=== PATIENT | female | born 1970 | race Caucasian/White ===

== ENCOUNTER 2019-07-06 16:35 | Emergency (ER) | payer SELFPAY ==
[~2019-07-06] VITALS: Ht 165.1 cm; Wt 63.5 kg
[2019-07-06] MEDS ORDERED: NS IV 1000 ML 1,000 ML IV STA (16:52)
--- NOTE | 2019-07-06 16:59 | ED General ---
General Chief Complaint: Respiratory Problems Stated Complaint: SOA,FLU A Source of Information: Patient History of Present Illness Date Seen by Provider: Jul 06, 2019 Time Seen by Provider: 16:37 Initial Comments 49-year-old female presenting with complaints of shortness of breath and swelling in her legs. This is been progressing since Thursday. She did have influenza A approximately 2 weeks ago. She felt like she was improving from that but then has had this increasing shortness of breath with cough and swelling since Thursday. She has not been having any fevers or chills. She has increased shortness of breath with exertion. She denies any pain. She has had no nausea, vomiting, abdominal pain, diarrhea, painful urination. She does have some dizziness with exertion and changing position. She has sensation of her heart racing especially with exertion. She occasionally coughs up some phlegm, more so in the mornings. Allergies and Home Medications Allergies Coded Allergies: No Known Drug Allergies (Unverified , 07/06/19) Home Medications Azithromycin 500 Mg Tablet, 500 MG PO DAILY Prescribed by: TANA FU on 07/06/19 190 Patient Home Medication List Home Medication List Reviewed: Yes Review of Systems Review of Systems Constitutional: No chills, No diaphoresis; dizziness (with exertion and changing positions); No fever; malaise EENTM: nose congestion, throat pain; No epistaxis Respiratory: cough, dyspnea on exertion, phlegm, short of breath (especially with exertion); No stridor, No wheezing Cardiovascular: No chest pain Gastrointestinal: No abdominal pain, No nausea, No vomiting Genitourinary: No dysuria, No pain; other (heavier menses lately) : No LMP: Jun 16, 2019 Musculoskeletal: no symptoms reported Skin: No rash Psychiatric/Neurological: Anxiety; Denies Headache Hematologic/Lymphatic: Anemia (Hgb 9 with labs for health fair at work on Monday 07/03) Past Nrhvngi-Wzglgg-Mrjgsq Hx Past Med/Social Hx: Reviewed Nursing Past Med/Soc Hx Patient Social History Alcohol Use: Denies Use Recreational Drug Use: No Smoking Status: Never a Smoker Recent Foreign Travel: No Contact w/Someone Who Travel: No Past Medical History Surgeries: Yes Appendectomy, Oophorectomy (1 ovary removed due to a cyst which was benign) Respiratory: No Cardiac: No Neurological: No Reproductive Disorders: Yes Female Reproductive Disorders: Ovarian Cyst (1 ovary removed due to a cyst) Genitourinary: No Musculoskeletal: No Endocrine: Yes Hypothyroidsim HEENT: No Cancer: No Psychosocial: No Integumentary: No Physical Exam Vital Signs Vital Signs - First Documented 07/06/19 16:35 Temp 37.4 Pulse 122 Resp 16 B/P (MAP) 151/87 (108) Pulse Ox 100 O2 Delivery Room Air Capillary Refill : Height, Weight, BMI Height: '" Weight: lbs. oz. kg; BMI Method: General Appearance: WD/WN, Anxious, Mild Distress HEENT: PERRL/EOMI, Pharyngeal Erythema Neck: Non Tender, Supple Respiratory: Chest Non Tender, Lungs Clear, Normal Breath Sounds Cardiovascular: No Murmur, Normal Peripheral Pulses, Tachycardia Gastrointestinal: Normal Bowel Sounds, No Pulsatile Mass, Non Tender, Soft Extremity: Normal Capillary Refill, Normal Range of Motion, Non Tender, Pedal Edema (1+ BLE pedal edema) Neurologic/Psychiatric: Alert, Oriented x3, No Motor/Sensory Deficits, ruby engineer II- XII Norm as Tested, Other (anxious) Skin: Normal Color, Warm/Dry Focused Exam Lactate Level 07/06/19 16:50: Lactic Acid Level 0.77 Lactic Acid Level Progress/Results/Core Measures Suspected Sepsis SIRS Temperature: Pulse: Respiratory Rate: Laboratory Tests 07/06/19 16:50: White Blood Count 8.1 Blood Pressure / Mean: 07/06/19 16:50: Lactic Acid Level 0.77 Laboratory Tests 07/06/19 16:50: Creatinine 0.69, Platelet Count 117L, Total Bilirubin 0.7 Results/Orders Lab Results Laboratory Tests Test 07/06/19 16:50 07/06/19 16:59 07/06/19 17:05 Range/Units White Blood Count 8.1 4.3-11.0 10^3/uL Red Blood Count 2.01 L 4.35-5.85 10^6/uL Hemoglobin 8.6 L 11.5-16.0 G/DL Hematocrit 25 L 35-52 % Mean Corpuscular Volume 123 H 80-99 FL Mean Corpuscular Hemoglobin 43 H 25-34 PG Mean Corpuscular Hemoglobin Concent 35 32-36 G/DL Red Cell Distribution Width 11.7 10.0-14.5 % Platelet Count 117 L 130-400 10^3/uL Mean Platelet Volume 12.2 H 7.4-10.4 FL Neutrophils (%) (Auto) 68 42-75 % Lymphocytes (%) (Auto) 27 12-44 % Monocytes (%) (Auto) 3 0-12 % Eosinophils (%) (Auto) 2 0-10 % Basophils (%) (Auto) 6 0-10 % Neutrophils # (Auto) 5.3 1.8-7.8 X 10^3 Lymphocytes # (Auto) 2.2 1.0-4.0 X 10^3 Monocytes # (Auto) 0.2 0.0-1.0 X 10^3 Eosinophils # (Auto) 0.1 0.0-0.3 10^3/uL Basophils # (Auto) 0.0 0.0-0.1 10^3/uL D-Dimer 0.69 H 0.00-0.49 UG/ML Sodium Level 141 135-145 MMOL/L Potassium Level 3.7 3.6-5.0 MMOL/L Chloride Level 106 98-107 MMOL/L Carbon Dioxide Level 24 21-32 MMOL/L Anion Gap 11 5-14 MMOL/L Blood Urea Nitrogen 12 7-18 MG/DL Creatinine 0.69 0.60-1.30 MG/DL Estimat Glomerular Filtration Rate > 60 BUN/Creatinine Ratio 17 Glucose Level 101 70-105 MG/DL Lactic Acid Level 0.77 0.50-2.00 MMOL/L Calcium Level 8.6 8.5-10.1 MG/DL Corrected Calcium 8.6 8.5-10.1 MG/DL Magnesium Level 2.0 1.6-2.4 MG/DL Total Bilirubin 0.7 0.1-1.0 MG/DL Aspartate Amino Transf (AST/SGOT) 47 H 5-34 U/L Alanine Aminotransferase (ALT/SGPT) 53 0-55 U/L Alkaline Phosphatase 92 40-136 U/L Troponin I < 0.30 <0.30 NG/ML Pro-B-Type Natriuretic Peptide 214.5 H <75.0 PG/ML Total Protein 6.7 6.4-8.2 GM/DL Albumin 4.0 3.2-4.5 GM/DL Blood Gas Puncture Site Lt Radial Blood Gas Patient Temperature 37.4 Arterial Blood pH 7.41 7.37-7.43 Arterial Blood Partial Pressure CO2 41 35-45 MMHG Arterial Blood Partial Pressure O2 26 *L 79-93 MMHG Arterial Blood HCO3 26 23-27 MMOL/L Arterial Blood Total CO2 27.3 21.0-31.0 MMOL/L Arterial Blood Oxygen Saturation 49 L 94-100 % Arterial Blood Base Excess 1.2 -2.5-2.5 MMOL/L Tj Test YES-POS Blood Gas Ventilator Setting NO Blood Gas Inspired Oxygen ROOM AIR Urine Color PALE YELLOW Urine Clarity CLEAR Urine pH 6.5 5-9 Urine Specific [place] <=1.005 1.016-1.022 Urine Protein NEGATIVE NEGATIVE Urine Glucose (UA) NEGATIVE NEGATIVE Urine Ketones NEGATIVE NEGATIVE Urine Nitrite NEGATIVE NEGATIVE Urine Bilirubin NEGATIVE NEGATIVE Urine Urobilinogen 0.2 < = 1.0 MG/DL Urine Leukocyte Esterase NEGATIVE NEGATIVE Urine RBC (Auto) NEGATIVE NEGATIVE Urine RBC NONE /HPF Urine WBC 2-5 /HPF Urine Squamous Epithelial Cells 2-5 /HPF Urine Crystals NONE /LPF Urine Bacteria FEW H /HPF Urine Casts NONE /LPF Urine Mucus NEGATIVE /LPF Urine Culture Indicated YES My Orders Orders - TANA FU MD Cbc With Automated Diff (07/06/19 16:37) Comprehensive Metabolic Panel (07/06/19 16:37) Blood Culture (07/06/19 16:37) Magnesium (07/06/19 16:37) Chest Pa/Lat (2 View) (07/06/19 16:37) Ekg Tracing (07/06/19 16:37) O2 (07/06/19 16:37) Ed Iv/Invasive Line Start (07/06/19 16:37) Sputum Culture (07/06/19 16:37) Monitor-Rhythm Ecg Trace Only (07/06/19 16:37) Lactic Acid Analyzer (07/06/19 16:37) Troponin I Fs (07/06/19 16:37) Probnp Fs (07/06/19 16:37) Pulse Oximetry Order (07/06/19 16:52) Ns Iv 1000 Ml (Sodium Chloride 0.9%) (07/06/19 16:52) Fibrin Degradation Products (07/06/19 17:05) Arterial Blood Gas (07/06/19 17:06) Ua Culture If Indicated (07/06/19 17:28) Ceftriaxone For Iv Use (Rocephin For I (07/06/19 17:33) Azithromycin Tablet (Zithromax Tablet) (07/06/19 17:33) Urine Culture (07/06/19 17:05) Ct Angio Chest W (07/06/19 18:09) Iohexol Injection (Omnipaque 350 Mg/Ml 1 (07/06/19 18:30) Received Contrast (Hold Metformin- Contr (07/06/19 18:30) Sodium Chloride Flush (Catheter Flush Sy (07/06/19 18:30) Ns (Ivpb) (Sodium Chloride 0.9% Ivpb Bag (07/06/19 18:30) Medications Given in ED Current Medications Medications Dose Ordered Sig/Ann Route Start Time Stop Time Status Last Admin Dose Admin Iohexol 100 ml ONCE ONCE IV 07/06/19 18:30 07/06/19 18:31 DC 07/06/19 18:37 100 ML Sodium Chloride 10 ml NEEDED PRN IV 07/06/19 18:30 07/06/19 19:25 DC 07/06/19 18:37 10 ML Sodium Chloride 100 ml ONCE ONCE IV 07/06/19 18:30 07/06/19 18:31 DC 07/06/19 18:37 100 ML Vital Signs/I&O 07/06/19 07/06/19 16:35 19:24 Temp 37.4 Pulse 122 98 Resp 16 18 B/P (MAP) 151/87 (108) 110/57 Pulse Ox 100 98 O2 Delivery Room Air Room Air 07/07/19 00:00 Intake Total 1010 ml Balance 1010 ml Capillary Refill : Progress Note #1: Progress Note Obtain basic labs and electrocardiogram with chest x-ray. Dr. Agrawal did call over to discuss the patient prior to her arrival in the emergency department. She requested chest x-ray and labs to evaluate for possible pneumonia. She was also concerned for cardiomyopathy or a cardiac pathology that might be contrib uting to her symptoms with her recent influenza infection. She was given a steroid shot in the clinic. Progress Note #2: Time: 17:31 Progress Note CXR shows Left base pneumonia and pleural effusion. Oxygen saturation stayed 97- 100% with walking here in the department. Will start antibiotics based off of her CXR findings and symptoms. Progress Note #3: Time: 17:49 Progress Note updated pt on CBC and CXR results. Her CBC was showing continued anemia with Hgb 8.6 and continued thrombocytopenia with Plt 117. She does have an elevated MCV of 123 so she might have low Vitamin B12 or Folate levels. Awaiting additional chemistry and D dimer tests still. pt reports she is feeling better between steroid shot from clinic and fluids here in ED. her O2 sat is remaining at 98-100% on room air. Progress Note #4: Time: 18:09 Progress Note Chemistry panel shows no acute significant abnormality. Negative Troponin. ProBNP still pending. DDimer elevated at 0.69 so will add on CTA chest to evaluate for PE as cause of infiltrate and effusion. Progress Note #5: Time: 18:49 Progress Note CTA chest negative for PE but shows infiltrate and effusion. will proceed with zithromax for pneumonia and follow up with Dr. Agrawal as needed. d/w Dr. Agrawal and pt had DepoMedrol so no need to continue oral steroids. 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 ECG Initial ECG Impression Date: Jul 06, 2019 Initial ECG Impression Time: 16:40 Initial ECG Rate: 111 Initial ECG Rhythm: S.Tach Initial ECG Comparisson: No Previous ECG Available Comment Sinus tachycardia with a heart rate in the 111 bpm. [place] interval 137 ms. QT interval 339 ms QTc interval 461 ms. There is no acute ST elevation. There is no prior tracing available for comparison. Diagnostic Imaging Diagonstic Imaging: Xray Plain Films/CT/US/NM/MRI: chest Comments NAME: RAF CORTEZ [facility] REC#: [id number] PT STATUS: REG ER : 1970 PHYSICIAN: TANA FU MD ADMIT DATE: 07/06/19/ER FS Draft Date of Exam:07/06/19 CHEST PA/LAT (2 VIEW) INDICATION: Cough and hypoxemia. PA and lateral views of the chest are obtained. There is no previous study for comparison. FINDINGS: There is mild air trapping, bilaterally. There is mild patchy density in the left lung base with blunting of the left costophrenic sulcus. Heart size and pulmonary vascularity are within normal limits. Lungs are otherwise clear. IMPRESSION: Mild left basilar infiltrate may represent pneumonitis or atypical pneumonia. There is evidence of mild left pleural fluid. Dictated on workstation # [id number] Dict: 07/06/19 1725 Trans: 07/06/19 1728 TS [id number] Interpreted by: PETROS JACOBO MD Electronically signed by: Greciagonsivana Imaging: CT Plain Films/CT/US/NM/MRI: chest Comments NAME: RAF CORTEZ REC#: [id number] PT STATUS: REG ER : 1970 PHYSICIAN: TANA FU MD ADMIT DATE: 07/06/19/ER FS Draft Date of Exam:07/06/19 CT ANGIO CHEST W PROCEDURE: CT angiography of the chest with contrast. TECHNIQUE: Multiple contiguous axial images were obtained through the chest after uneventful bolus administration of intravenous contrast. 3D reconstructed CTA MIP acquisitions were also performed. Auto Exposure Controls were utilized during the CT exam to meet ALARA standards for radiation dose reduction. INDICATION: Cough and elevated d-dimer. FINDINGS: There is good opacification of pulmonary arteries. No intraluminal filling defect is identified. There is no evidence of thoracic aortic abnormality. There is patchy infiltrate involving primarily the lower lobe of the left lung with an approximately 7.6 x 1.4 cm nodular focus of presumed infiltrate along the posterior margin of the left hilum. There is also small amount of left pleural fluid. No significant right pleural fluid or pericardial effusion is identified. No definite pathologic adenopathy is identified. Upper abdominal sections reveal no additional lesion apart from a probable posterior gastric diverticulum at the level of the fundus.. IMPRESSION: No CTA evidence of pulmonary embolism. Patchy areas of infiltrate in the left lung are likely due to pneumonitis or atypical pneumonia. There is associated small amount of left pleural fluid. Follow-up study could be performed to document resolution. Dictated on workstation # [id number] Dict: 07/06/19 1848 Trans: 07/06/19 1858 SA [id number] Interpreted by: PETROS JACOBO MD Electronically signed by: Departure Impression Primary Impression: Left lower lobe pulmonary infiltrate Additional Impressions: Pleural effusion on left Anemia Qualified Codes: D64.9 - Anemia, unspecified Thrombocytopenia Disposition: 01 HOME, SELF-CARE Condition: Stable Departure-Patient Inst. Decision time for Depature: 19:01 Referrals: LOVELY AGRAWAL MD (PCP/Family) Primary Care Physician Patient Instructions: Pneumonia, Adult (DC), Pleural Effusion (DC) Add. Discharge Instructions: Take the full course of antibiotics. Take a multivitamin with iron to help your body replace your low blood count and anemia. Follow up with Dr. Agrawal for further testing to see if you have low vitamin levels that might be contributing to the anemia. Return or check with clinic for worsening breathing or if not improving over the next several days. Take mucinex to help loosen your cough and congestion. Use a humidifier at the bedside to help with your congestion and cough while you are sleeping. All discharge instructions reviewed with patient and/or family. Voiced understanding. Scripts Azithromycin (Azithromycin) 500 Mg Tablet 500 MG PO DAILY for pneumonia for 4 Days, #4 TAB 0 Refills Prov: TANA FU MD 07/06/19 TANA FU MD Jul 06, 2019 16:59
--- NOTE | 2019-07-06 17:27 | NUR ---
Pt walked to radiology with portable O2 monitor. Pt's O2 sat ranged between 97%-100% while ambulating.
--- NOTE | 2019-07-06 17:28 | Diagnostic Imaging Report ---
INDICATION: Cough and hypoxemia. PA and lateral views of the chest are obtained. There is no previous study for comparison. FINDINGS: There is mild air trapping, bilaterally. There is mild patchy density in the left lung base with blunting of the left costophrenic sulcus. Heart size and pulmonary vascularity are within normal limits. Lungs are otherwise clear. IMPRESSION: Mild left basilar infiltrate may represent pneumonitis or atypical pneumonia. There is evidence of mild left pleural fluid. Dictated by: Dictated on workstation # [id number]
[2019-07-06] MEDS ORDERED: AZITHROMYCIN 250 MG TAB (ZITHROMAX) PO STA (17:33)
[2019-07-06] MEDS ORDERED: cefTRIAXone FOR IV USE 1,000 MG in WATER (STERILE) FOR INJECTION 10 ML IV STA (17:33)
[2019-07-06 17:34] LABS: EOSINOPHILS % (AUTO) 2 % (0-10); HEMATOCRIT 25 % (35-52); HEMOGLOBIN 8.6 G/DL (11.5-16.0); LYMPHOCYTES % (AUTO) 27 % (12-44); MEAN CORPUSCULAR HEMOGLOBIN 43 PG (25-34); MEAN CORPUSCULAR HGB CONC 35 G/DL (32-36); MEAN CORPUSCULAR VOLUME 123 FL (80-99); MEAN PLATELET VOLUME 12.2 FL (7.4-10.4); MONOCYTES % (AUTO) 3 % (0-12); PLATELET COUNT 117 10^3/uL (130-400); RED CELL DISTRIBUTION WIDTH 11.7 % (10.0-14.5); WHITE BLOOD COUNT 8.1 10^3/uL (4.3-11.0)
[2019-07-06 17:35] LABS: BASOPHILS % (AUTO) 6 % (0-10); NEUTROPHILS % (AUTO) 68 % (42-75)
[2019-07-06 17:37] LABS: EOSINOPHILS # (AUTO) 0.1 10^3/uL (0.0-0.3); LYMPHOCYTES # (AUTO) 2.2 X 10^3 (1.0-4.0); MONOCYTES # (AUTO) 0.2 X 10^3 (0.0-1.0); NEUTROPHILS # (AUTO) 5.3 X 10^3 (1.8-7.8)
[2019-07-06 17:48] LABS: ALANINE AMINOTRANSFERASE 53 U/L (0-55); ALKALINE PHOSPHATASE 92 U/L (40-136); BILIRUBIN,TOTAL 0.7 MG/DL (0.1-1.0); BUN/CREATININE RATIO 17; CALCIUM 8.6 MG/DL (8.5-10.1); CARBON DIOXIDE 24 MMOL/L (21-32); CHLORIDE 106 MMOL/L (98-107); CREATININE SERUM 0.69 MG/DL (0.60-1.30); GFR ESTIMATED > 60; GLUCOSE 101 MG/DL (70-105); POTASSIUM 3.7 MMOL/L (3.6-5.0); SODIUM 141 MMOL/L (135-145)
[2019-07-06 17:49] LABS: TOTAL PROTEIN 6.7 GM/DL (6.4-8.2)
[2019-07-06 17:50] LABS: ABG BASE EXCESS 1.2 MMOL/L (-2.5-2.5); ABG PCO2 41 MMHG (35-45); ABG PH 7.41 (7.37-7.43); ABG TCO2 27.3 MMOL/L (21.0-31.0)
[2019-07-06 17:51] LABS: ALLENS TEST YES-POS; PATIENT TEMP 37.4; VENTILATOR NO
[2019-07-06 17:52] LABS: ABG OXYGEN SATURATION 49 % (94-100); ABG PO2 26 MMHG (79-93)
[2019-07-06 17:53] LABS: INSPIRED O2 ROOM AIR
[2019-07-06 18:02] LABS: BACTERIA,URINE FEW /HPF; BILIRUBIN,URINE NEGATIVE (NEGATIVE); CLARITY,URINE CLEAR; COLOR,URINE PALE YELLOW; GLUCOSE, URINE (UA) NEGATIVE (NEGATIVE); KETONES,URINE NEGATIVE (NEGATIVE); LEUKOCYTE ESTERASE ,URINE NEGATIVE (NEGATIVE); NITRITE,URINE NEGATIVE (NEGATIVE); PH,URINE 6.5 (5-9); PROTEIN,URINE NEGATIVE (NEGATIVE)
[2019-07-06] MEDS ORDERED: IOHEXOL 350 MG/ML 100 ML (OMNIPAQUE 350) VIAL IV ONE (18:30)
[2019-07-06] MEDS ORDERED: NS 100 ML (IVPB) BAG IV ONE (18:30)
[2019-07-06] MEDS ORDERED: HOLD METFORMIN - RECEIVED CONTRAST 20 ML VIAL IV SCH (18:30)
[2019-07-06] MEDS ORDERED: CATHETER FLUSH 10 ML SYR IV PRN (18:30)
--- NOTE | 2019-07-06 18:58 | Diagnostic Imaging Report ---
PROCEDURE: CT angiography of the chest with contrast. TECHNIQUE: Multiple contiguous axial images were obtained through the chest after uneventful bolus administration of intravenous contrast. 3D reconstructed CTA MIP acquisitions were also performed. Auto Exposure Controls were utilized during the CT exam to meet ALARA standards for radiation dose reduction. INDICATION: Cough and elevated d-dimer. FINDINGS: There is good opacification of pulmonary arteries. No intraluminal filling defect is identified. There is no evidence of thoracic aortic abnormality. There is patchy infiltrate involving primarily the lower lobe of the left lung with an approximately 7.6 x 1.4 cm nodular focus of presumed infiltrate along the posterior margin of the left hilum. There is also small amount of left pleural fluid. No significant right pleural fluid or pericardial effusion is identified. No definite pathologic adenopathy is identified. Upper abdominal sections reveal no additional lesion apart from a probable posterior gastric diverticulum at the level of the fundus.. IMPRESSION: No CTA evidence of pulmonary embolism. Patchy areas of infiltrate in the left lung are likely due to pneumonitis or atypical pneumonia. There is associated small amount of left pleural fluid. Follow-up study could be performed to document resolution. Dictated by: Dictated on workstation # [id number]
[2019-07-06] MEDS ORDERED: AZIT500T9 PO (19:05)
[2019-07-06 19:24] VITALS: BP 110/57
--- OUTSIDE RECORDS SUMMARY | 2019-07-11 10:31 | XMS REPORT | Continuity of Care Document ---
Author Organization Unknown Address Unknown Phone Unavailable Allergies Active Description Code Type Severity Reaction Onset Reported/Identified Relationship to Patient Clinical Status Yes No Known Drug Allergies [id number] Drug Allergy Unknown N/A 07/06/2019 Medications There is no data. Problems There is no data. Procedures There is no data. Results Test Result Range LIPID PANEL - 08/10/18 14:17 CHOLESTEROL, TOTAL 165 mg/dL <200 HDL CHOLESTEROL 67 mg/dL >50 TRIGLYCERIDES 92 mg/dL <150 LDL-CHOLESTEROL 80 mg/dL (calc) NRG CHOL/HDLC RATIO 2.5 (calc) <5.0 NON HDL CHOLESTEROL 98 mg/dL (calc) <130 CMP - 08/10/18 14:17 GLUCOSE 79 mg/dL 65-99 UREA NITROGEN (BUN) 14 mg/dL 7-25 CREATININE 0.61 mg/dL 0.50-1.10 eGFR NON-AFR. POLISH 109 mL/min/1.73m2 > OR = 60 eGFR 126 mL/min/1.73m2 > OR = 60 BUN/CREATININE RATIO NOT APPLICABLE (calc) 6-22 SODIUM 139 mmol/L 135-146 POTASSIUM 4.3 mmol/L 3.5-5.3 CHLORIDE 105 mmol/L 98-110 CARBON DIOXIDE 22 mmol/L 20-32 CALCIUM 8.8 mg/dL 8.6-10.2 PROTEIN, TOTAL 6.7 g/dL 6.1-8.1 ALBUMIN 4.8 g/dL 3.6-5.1 GLOBULIN 1.9 g/dL (calc) 1.9-3.7 ALBUMIN/GLOBULIN RATIO 2.5 (calc) 1.0-2. 5 BILIRUBIN, TOTAL 1.0 mg/dL 0.2-1.2 ALKALINE PHOSPHATASE 43 U/L 33-115 AST 19 U/L 10-35 ALT 12 U/L 6-29 SUREPATH PAP RFX HPV mRNA E6/E7 - 16:27 CLINICAL INFORMATION: NRG LMP: NRG PREV. PAP: NRG PREV. BX: NRG SOURCE: Cervix NR STATEMENT OF ADEQUACY: NRG INTERPRETATION/RESULT: NRG INSERTER: MANFREDG GENERAL CATEGORIZATION: NRG COMMENT: NRG PATHOLOGIST: NRG COMMENT NR LIPID PANEL - 02/18/19 07:42 CHOLESTEROL, TOTAL 150 mg/dL <200 HDL CHOLESTEROL 60 mg/dL >50 TRIGLYCERIDES 82 mg/dL <150 LDL-CHOLESTEROL 74 mg/dL (calc) NRG CHOL/HDLC RATIO 2.5 (calc) <5.0 NON HDL CHOLESTEROL 90 mg/dL (calc) <130 TSH - 02/18/19 07:42 TSH 0.35 mIU/L NRG Complete blood count (CBC) with automate d white blood cell (WBC) differential - 07/06/19 16:50 Blood leukocytes automated count (number/volume) 8.1 10*3/uL 4.3-11.0 Blood erythrocytes automated count (number/volume) 2.01 10*6/uL 4.35-5.85 Venous blood hemoglobin measurement (mass/volume) 8.6 g/dL 11.5-16.0 Blood hematocrit (volume fraction) 25 % 35-52 Automated erythrocyte mean corpuscular volume 123 [foz_us] 80-99 Automated erythrocyte mean corpuscular h emoglobin (mass per erythrocyte) 43 pg 25-34 Automated erythrocyte mean corpuscular h emoglobin concentration measurement (mass/volume) 35 g/dL 32-36 Automated erythrocyte distribution width ratio 11. 7 % 10.0- 14.5 Automated blood platelet count (count/volume) 117 10*3/uL 130-400 Automated blood platelet mean volume measurement 12.2 [foz_us] 7.4-10.4 Automated blood neutrophils/100 leukocytes 68 % 42-75 Automated blood lymphocytes/100 leukocytes 27 % 12-44 Blood monocytes/100 leukocytes 3 % 0-12 Automated blood eosinophils/100 leukocytes 2 % 0-10 Automated blood basophils/100 leukocytes 6 % 0-10 Blood neutrophils automated count (number/volume) 5.3 10*3 1.8-7.8 Blood lymphocytes automated count (number/volume) 2.2 10*3 1.0-4.0 Blood monocytes automated count (number/volume) 0. 2 10*3 0.0-1.0 Automated eosinophil count 0.1 10*3/uL 0 .0-0.3 Automated blood basophil count (count/volume) 0.0 10*3/uL 0.0-0.1 Blood lactic acid measurement (moles/vol ume) - 07/06/19 16:50 Blood lactic acid measurement (moles/volume) 0.77 mmol/L 0.50-2.00 Comprehensive metabolic panel - 07/06/19 16:50 Serum or plasma sodium measurement (moles/volume) 141 mmol/L 135-145 Serum or plasma potassium measurement (moles/volume) 3.7 mmol/L 3.6-5.0 Serum or plasma chloride measurement (moles/volume) 106 mmol/L 98-107 Carbon dioxide 24 mmol/L 21-32 Serum or plasma anion gap determination (moles/volume) 11 mmol/L 5-14 Serum or plasma urea nitrogen measurement (mass/volume ) 12 mg/dL 7-18 Serum or plasma creatinine measurement (mass/volume) 0.69 mg/dL 0.60-1.30 Serum or plasma urea nitrogen/creatinine mass ratio 17 NRG Serum or plasma creatinine measurement w ith calculation of estimated glomerular filtration rate > NRG Serum or plasma glucose measurement (mass/volume) 101 mg/dL 70-105 Serum or plasma calcium measurement (mass/volume) 8.6 mg/dL 8.5-10.1 Serum or plasma total bilirubin measurement (mass/volu me) 0.7 mg/dL 0.1-1.0 Serum or plasma alkaline phosphatase eber surement (enzymatic activity/volume) 92 U/L 40-136 Serum or plasma aspartate aminotransfera se measurement (enzymatic activity/volume) 47 U/L 5-34 Serum or plasma alanine aminotransferase measurement (enzymatic activity/volume) 53 U/L 0-55 Serum or plasma protein measurement (mass/volume) 6.7 g/dL 6.4-8.2 Serum or plasma albumin measurement (mass/volume) 4.0 g/dL 3.2-4.5 CALCIUM CORRECTED 8.6 mg/dL 8.5-10.1 Magnesium - 07/06/19 16:50 Magnesium 2.0 mg/dL 1.6-2.4 TROPONIN I FS - 07/06/19 16:50 TROPONIN I FS < 0.30 <0.30 Fibrin D-dimer FEU measurement in platel et poor plasma (mass/volume) - 07/06/19 16:50 Fibrin D-dimer FEU measurement in platelet poor plasma (mass/volume) 0.69 ug/mL 0.00-0.49 PROBNP FS - 07/06/19 16:50 PROBNP FS 214.5 pg/mL <75.0 Bacterial blood culture - 07/06/19 16:52 Bacterial blood culture NG NRG Arterial blood gas measurement - 0 16:59 Blood pCO2 41 mm[Hg] 35-45 Blood pO2 26 mm[Hg] 79-93 Arterial blood bicarbonate measurement (moles/volume) 26 mmol/L 23-27 Arterial blood base excess by calculation 1.2 mmol /L -2.5-2.5 Arterial blood oxygen saturation measurement 49 % 94-100 * Inhaled oxygen flow rate ROOM AIR NRG Arterial blood pH measurement with patient temperature correction 7.41 7.37-7.43 Arterial blood carbon dioxide, total measurement (mole s/volume) 27.3 mmol/L 21.0-31.0 Body site Lt Radial NRG Assessment of wrist artery patency prior to arterial p uncture YES-POS NRG Setting of ventilation mode NO NR G Measurement of body temperature 37.4 NRG Bacterial blood culture - 07/06/19 17:00 Bacterial blood culture NG NRG Complete urinalysis with reflex to cultu re - 07/06/19 17:05 Urine color determination PALE YELLOW N RG Urine clarity determination CLEAR NR G Urine pH measurement by test strip 6.5 5-9 Specific gravity of urine by test strip <= 1.016-1.022 Urine protein assay by test strip, semi-quantitative NEGATIVE NEGATIVE Urine glucose detection by automated test strip NE GATIVE NEGATIVE Erythrocytes detection in urine sediment by light micr oscopy NEGATIVE NEGATIVE Urine ketones detection by automated test strip NE GATIVE NEGATIVE Urine nitrite detection by test strip NEGATIVE NEGATIVE Urine total bilirubin detection by test strip NEGA TIVE NEGATIVE Urine urobilinogen measurement by automated test strip (mass/volume) 0.2 mg/dL < = 1.0 Urine leukocyte esterase detection by dipstick NEG ATIVE NEGATIVE Automated urine sediment erythrocyte cou nt by microscopy (number/high power field) NONE NRG Automated urine sediment leukocyte count by microscopy (number/high power field) [HPF] NRG Bacteria detection in urine sediment by light microsco py FEW NRG Squamous epithelial cells detection in u rine sediment by light microscopy 2-5 NRG Crystals detection in urine sediment by light microsco py NONE NRG Casts detection in urine sediment by light microscopy NONE NRG Mucus detection in urine sediment by light microscopy NEGATIVE NRG Complete urinalysis with reflex to culture YES NRG Bacterial urine culture - 07/06/19 17:05 Bacterial urine culture [id number] NRG COLONY COUNT 50,000 CFU/ML NRG FTX;REPORTABLE SUSCEPTIBILITY REPORTED 07/07 09:20 NRG FREE TEXT ENTRY [address] [facility] 07-07-19,10 53 NRG Dirithromycin susceptibility test by dis k diffusion - 07/06/19 17:05 Gentamicin susceptibility test by minimum inhibitory c oncentration <= NRG Trimethoprim/sulfamethoxazole susceptibi lity test by minimum inhibitoryconcentration <= NRG Levofloxacin susceptibility test by minimum inhibitory concentration <= NRG Ampicillin susceptibility test by minimum inhibitory c oncentration <= NRG Cefazolin susceptibility test by minimum inhibitory co ncentration <= NRG Ceftriaxone susceptibility test by minimum inhibitory concentration <= NRG Ciprofloxacin susceptibility test by minimum inhibitor y concentration <= NRG Meropenem susceptibility test by minimum inhibitory co ncentration <= NRG Nitrofurantoin susceptibility test by mi nimum inhibitory concentration <= NRG Amoxicillin and clavulanate potassium susc MATTEO <= NRG Encounters ACCT No. Visit Date/Time Discharge Status Pt. Type Provider Facility Loc./Unit Complaint [id number] 06/28/2019 12:40:00 06/28/2019 23:59: 59 CLS Outpatient [facility] [id number] 02/18/2019 07:30:00 Document Registration [id number] 12/29/2018 16:00:00 Document Registration [id number] 08/10/2018 14:30:00 Document Registration [id number] 07/06/2019 16:38:00 020 19:24:00 DIS Emergency NICKIE ROBLES, TANA Mendes [facility] ER FS SOA,FLU A
== END 2019-07-06 19:24 | disposition home or self-care (01) ==
LOC: ER FS 16:38
DX: R91.8 Other nonspecific abnormal finding of lung field (principal); J90 Pleural effusion, not elsewhere classified; D64.9 Anemia, unspecified; D69.6 Thrombocytopenia, unspecified
CPT/HCPCS: 36415; 71046; 71275; 80053; 81000; 82805; 83605; 83735; 83880; 84484; 85025; 85379; 87040; 87088; 87186; 93005; 93041

== ENCOUNTER 2019-07-10 12:59 | Emergency (ER) | payer BC, OTHER ==
[~2019-07-10] VITALS: Ht 165 cm; Wt 60.8 kg
[~2019-07-10 12:59] MED LIST: AZIT500T9 PO
[2019-07-10] MEDS ORDERED: FEXO1TAB40 PO ×3 (13:23→13:30)
--- NOTE | 2019-07-10 13:23 | ED Cough/URI ---
General Chief Complaint: General Problems/Pain Stated Complaint: COUGH; FEVER; JAW TIGHTNESS Nursing Triage Note: patient reports neuropathic bilateral jaw pain, ear ache x 1 month Sepsis Screen: No Definite Risk History of Present Illness Date Seen by Provider: Jul 10, 2019 Time Seen by Provider: 13:17 Initial Comments This patient is a 49-year-old female presents to the emergency department after being diagnosed with a pneumonia 4 days ago. Patient states she doesn't feel any better. Patient does not appear to be acutely sick. Patient has multiple vague complaints including sinusitis type symptoms vague dizziness but denies fever cough shortness of breath and congestion. Patient states she just feels like she is a little off balance. At times with this nonspecific reason. It feels like that she can't taste anything. Patient does not appear to be sick in an accident feels been pretty healthy. Patient is currently on a Z-Salvador that was just recently prescribed and patient has already been given a steroid for this recent infection. Patient has not followed up with her primary care physician states that she has been taking medications. Patient states that she can follow up with PCP upon discharge. Timing/Duration: week Severity/Quality: mild Modifying Factors: Worse With Lying Down Associated Symptoms: cough Allergies and Home Medications Allergies Coded Allergies: No Known Drug Allergies (Unverified , 07/06/19) Home Medications Azithromycin 500 Mg Tablet, 500 MG PO DAILY Prescribed by: TANA FU on 07/06/19 6578 Patient Home Medication List Home Medication List Reviewed: Yes Review of Systems Review of Systems Constitutional: no symptoms reported, see HPI; No chills, No diaphoresis, No dizziness, No fever; malaise; No weakness, No weight gain, No weight loss, No other EENTM: see HPI, no symptoms reported, nose congestion; No ear discharge, No hearing loss, No ear pain, No blurred vision, No double vision, No eye pain, No tearing, No vision loss, No dental problems, No hoarseness, No mouth pain, No mouth swelling, No epistaxis, No nose pain, No throat pain, No throat swelling, No other Respiratory: No short of breath, No stridor Cardiovascular: No edema, No palpitations, No syncope Gastrointestinal: No diarrhea, No nausea Genitourinary: No hematuria, No pain Past Euopixu-Jcihzr-Cldcvn Hx Patient Social History Alcohol Use: Denies Use Recreational Drug Use: No 2nd Hand Smoke Exposure: No Recent Foreign Travel: No Contact w/Someone Who Travel: No Recent Infectious Disease Expo: No Recent Hopitalizations: No Past Medical History Surgeries: Yes Appendectomy, Oophorectomy Respiratory: No Cardiac: No Neurological: No Reproductive Disorders: Yes Female Reproductive Disorders: Ovarian Cyst Genitourinary: No Gastrointestinal: No Musculoskeletal: No Endocrine: Yes Hypothyroidsim HEENT: No Cancer: No Psychosocial: No Integumentary: No Blood Disorders: No Physical Exam Vital Signs - First Documented 07/10/19 13:03 Temp 36.4 Pulse 104 Resp 18 B/P (MAP) 153/80 (104) Pulse Ox 98 Capillary Refill : Less Than 3 Seconds Height: '" Weight: lbs. oz. kg; 22.00 BMI Method: General Appearance: WD/WN, no apparent distress Eyes: Right Eye Normal Inspection, Right Eye PERRL, Right Eye EOMI, Right Eye Abnormal EOM; Bilateral Eye Normal Inspection, Bilateral Eye PERRL, Bilateral Eye EOMI HEENT: PERRL/EOMI, normal ENT inspection, TMs normal, pharynx normal Neck: non-tender, full range of motion, supple, normal inspection, carotid bruit Respiratory: chest non-tender, lungs clear, normal breath sounds, no respiratory distress, no accessory muscle use, respiratory distress Cardiovascular: normal peripheral pulses, regular rate, rhythm, no edema, no gallop, no JVD, no murmur Gastrointestinal: normal bowel sounds, non tender, soft, no organomegaly, no pulsatile mass Extremities: normal range of motion, non-tender, normal inspection, no pedal edema, no calf tenderness, normal capillary refill, pelvis stable Skin: normal color, warm/dry, cyanosis, cool, diaphoresis, damp Progress/Results/Core Measures Suspected Sepsis Recent Fever Within 48 Hours: No Infection Criteria Present: None New/Unexplained Altered Menta: No Sepsis Screen: No Definite Risk SIRS Temperature: Pulse: 104 Respiratory Rate: 18 Blood Pressure 153 /80 Mean: 104 Results/Orders Vital Signs/I&O 07/10/19 13:03 Temp 36.4 Pulse 104 Resp 18 B/P (MAP) 153/80 (104) Pulse Ox 98 Capillary Refill : Less Than 3 Seconds Blood Pressure Mean: 104 Departure Impression Primary Impression: General medical exam Additional Impressions: Viral syndrome Sinusitis Disposition: HOME, SELF-CARE Condition: Improved Departure-Patient Inst. Referrals: LOVELY AGRAWAL MD (PCP/Family) Primary Care Physician Patient Instructions: Sinusitis in Adults, Viral Syndrome (DC), Cough, Runny Nose, and the Common Cold (DC), Bacterial Upper Respiratory Infection, Adult Add. Discharge Instructions: Encourage by mouth fluids. Cool mist via fire and bedroom. Tylenol Motrin as A for fever or pain. We'll start the patient on Marley as an antihistamine. Patient is to finish her Zithromax. Follow up with PCP in 3-5 days. All discharge instructions reviewed with patient and/or family. Voiced understanding. BRIJESH BARRY MD Jul 10, 2019 13:22
[2019-07-10 13:39] VITALS: BP 153/80
--- OUTSIDE RECORDS SUMMARY | 2019-07-13 08:49 | XMS REPORT | Continuity of Care Document ---
Author Organization Unknown Address Unknown Phone Unavailable Allergies Active Description Code Type Severity Reaction Onset Reported/Identified Relationship to Patient Clinical Status Yes No Known Drug Allergies [id number] Drug Allergy Unknown N/A 07/06/2019 Medications There [...] 7-25 CREATININE 0.61 mg/dL 0.50-1.10 eGFR NON-AFR. SWISS 109 mL/min/1.73m2 > OR = 60 eGFR [...] NR STATEMENT OF ADEQUACY: NRG INTERPRETATION/RESULT: NRG NURSING SERVICES MANAGER: MANFREDG GENERAL CATEGORIZATION: NRG COMMENT: NRG PATHOLOGIST: [...] culture - 07/06/19 17:05 Bacterial urine culture [id number] NRG COLONY COUNT 50,000 CFU/ML NRG FTX;REPORTABLE SUSCEPTIBILITY REPORTED 07/07 09:20 NRG FREE TEXT ENTRY 2 PRELIM RAPID ID BY [facility] 07-07-19,10 53 NRG Dirithromycin susceptibility [...] Status Pt. Type Provider Facility Loc./Unit Complaint [id number] 06/28/2019 12:40:00 06/28/2019 23:59: 59 [facility] Outpatient [facility]RAWAL [facility] [id number] 02/18/2019 07:30:00 Document Registration [id number] 12/29/2018 16:00:00 Document Registration [id number] 08/10/2018 14:30:00 Document Registration [id number] 07/10/2019 13:01:00 020 13:39:00 DIS Emergency JHONNY ROBLES, BRIJESH Mendez [facility] ER FS COUGH; FEVER; JAW TIGHT NESS [id number] 07/06/2019 16:38:00 020 19:24:00 DIS Emergency TANA FU MD [facility] ER FS SOA,FLU A
== END 2019-07-10 13:39 | disposition home or self-care (01) ==
LOC: EDUNIT# 12:59 → ER FS 13:01
DX: B34.9 Viral infection, unspecified (principal); J32.9 Chronic sinusitis, unspecified
CPT/HCPCS: 99281

== ENCOUNTER → 2019-07-20 | Outpatient (CLI) | payer BC ==
[~2019-07-20] MED LIST changes: +FEXO1TAB40 PO
[2019-07-20 13:13] LABS: EOSINOPHILS % (AUTO) 1 % (0-10); HEMATOCRIT 31 % (35-52); HEMOGLOBIN 10.8 G/DL (11.5-16.0); LYMPHOCYTES % (AUTO) 22 % (12-44); MEAN CORPUSCULAR HEMOGLOBIN 43 PG (25-34); MEAN CORPUSCULAR HGB CONC 35 G/DL (32-36); MEAN CORPUSCULAR VOLUME 125 FL (80-99); MEAN PLATELET VOLUME 10.1 FL (7.4-10.4); MONOCYTES % (AUTO) 5 % (0-12); NEUTROPHILS % (AUTO) 72 % (42-75); PLATELET COUNT 387 10^3/uL (130-400); RED CELL DISTRIBUTION WIDTH 11.9 % (10.0-14.5); WHITE BLOOD COUNT 7.5 10^3/uL (4.3-11.0)
[2019-07-20 13:14] LABS: BASOPHILS % (AUTO) 0 % (0-10); EOSINOPHILS # (AUTO) 0.1 10^3/uL (0.0-0.3); LYMPHOCYTES # (AUTO) 1.7 X 10^3 (1.0-4.0); MONOCYTES # (AUTO) 0.4 X 10^3 (0.0-1.0); NEUTROPHILS # (AUTO) 5.4 X 10^3 (1.8-7.8)
== END ==
LOC: LAB FS 12:12
PROVIDERS: ATTEND Family Medicine
DX: D64.9 Anemia, unspecified (principal)
CPT/HCPCS: 36415; 82607; 82746; 83540; 83550; 85025

== ENCOUNTER → 2019-08-04 | Outpatient (CLI) | payer BC ==
[2019-08-04 14:20] LABS: ALANINE AMINOTRANSFERASE 9 U/L (0-55); ALBUMIN 4.8 GM/DL (3.2-4.5); ALKALINE PHOSPHATASE 64 U/L (40-136); BILIRUBIN,TOTAL 0.7 MG/DL (0.1-1.0); BUN/CREATININE RATIO 19; CALCIUM 9.4 MG/DL (8.5-10.1); CARBON DIOXIDE 22 MMOL/L (21-32); CHLORIDE 98 MMOL/L (98-107); CREATININE SERUM 0.63 MG/DL (0.60-1.30); GFR ESTIMATED > 60; GLUCOSE 86 MG/DL (70-105); POTASSIUM 4.1 MMOL/L (3.6-5.0); SODIUM 137 MMOL/L (135-145); TOTAL PROTEIN 7.6 GM/DL (6.4-8.2); WHITE BLOOD COUNT 11.4 10^3/uL (4.3-11.0)
[2019-08-04 14:21] LABS: BASOPHILS % (AUTO) 0 % (0-10); EOSINOPHILS # (AUTO) 0.1 10^3/uL (0.0-0.3); EOSINOPHILS % (AUTO) 1 % (0-10); HEMATOCRIT 40 % (35-52); HEMOGLOBIN 13.6 G/DL (11.5-16.0); LYMPHOCYTES # (AUTO) 2.3 X 10^3 (1.0-4.0); LYMPHOCYTES % (AUTO) 20 % (12-44); MEAN CORPUSCULAR HEMOGLOBIN 40 PG (25-34); MEAN CORPUSCULAR HGB CONC 34 G/DL (32-36); MEAN CORPUSCULAR VOLUME 116 FL (80-99); MEAN PLATELET VOLUME 11.1 FL (7.4-10.4); MONOCYTES # (AUTO) 0.6 X 10^3 (0.0-1.0); MONOCYTES % (AUTO) 5 % (0-12); NEUTROPHILS # (AUTO) 8.5 X 10^3 (1.8-7.8); NEUTROPHILS % (AUTO) 74 % (42-75); PLATELET COUNT 343 10^3/uL (130-400); RED CELL DISTRIBUTION WIDTH 12.9 % (10.0-14.5)
== END ==
LOC: LAB FS 13:33
PROVIDERS: ATTEND Family Medicine
DX: R20.0 Anesthesia of skin (principal); R42 Dizziness and giddiness
CPT/HCPCS: 36415; 80053; 85025

== ENCOUNTER → 2019-08-05 | Outpatient (CLI) | payer BC ==
--- NOTE | 2019-08-05 11:05 | Diagnostic Imaging Report ---
INDICATION: Fever and right-sided chest pain. TIME OF EXAM: 10:57 AM Correlation is made with prior chest from 07/06/2019. There is minimal residual density in the left base however this does appear to be slightly improved. Remainder of lung lopez are clear. Pulmonary vascularity is unremarkable. No effusion or pneumothorax is seen. IMPRESSION: Partial clearing of left basilar pneumonia since exam from 07/06/2019. Dictated by: Dictated on workstation # [id number]
== END ==
LOC: RAD FS 10:37
PROVIDERS: ATTEND Family Medicine
DX: J18.9 Pneumonia, unspecified organism (principal); R50.9 Fever, unspecified
CPT/HCPCS: 71046

== ENCOUNTER 2020-04-16 05:49 | Outpatient (RCR) | payer BC ==
[~2020-04-16] VITALS: Ht 167.7 cm; Wt 59.1 kg
[2020-04-16] MEDS ORDERED: MULT-141 PO (13:45)
[2020-04-16] MEDS ORDERED: OMEP20TA33 PO (13:45)
[2020-04-16] MEDS ORDERED: METO50TA7 PO (13:45)
== END 2020-04-16 13:47 | disposition home or self-care (01) ==
LOC: PREOP 05:49
PROVIDERS: ATTEND Surgery
DX: Z01.818 Encounter for other preprocedural examination (principal)

== ENCOUNTER 2020-04-23 09:23 | Day surgery (SDC) | payer BC ==
[2020-04-23] VITALS (10 sets, daily range): BP systolic 114–122; BP diastolic 56–77
[~2020-04-23] VITALS: Ht 167 cm; Wt 59.0 kg
[~2020-04-23 09:23] MED LIST changes: +METO50TA7 PO; +MULT-141 PO; +OMEP20TA33 PO
[2020-04-23] MEDS ORDERED: LACTATED RINGERS 1,000 ML IV ONE (09:26)
[2020-04-23] MEDS ORDERED: LACTATED RINGERS 1,000 ML IV STA (09:34)
[2020-04-23] MEDS ORDERED: HURRICAINE EXT TUBE (BENZOCAINE) XX PRN (09:45)
[2020-04-23] MEDS ORDERED: PROPOFOL INJECTION 50 ML IV ONE (10:41)
[2020-04-23] MEDS ORDERED: MIDAZOLAM 2 MG/2 ML (VERSED) VIAL ONE (10:41)
--- NOTE | 2020-04-23 10:43 | Progress Note-Pre Operative ---
Pre-Operative Progress Note H&P Reviewed The H&P was reviewed, patient examined and no changes noted. Time Seen by Provider: 10:06 Date H&P Reviewed: Apr 23, 2020 Time H&P Reviewed: 10:07 Pre-Operative Diagnosis: Gastritis, Change in bowel habits, family hx of colon polyps VINCENT HILARIO DO Apr 23, 2020 10:43
--- NOTE | 2020-04-23 11:16 | Progress Note-Post Operative ---
Post-Operative Progess Note Surgeon (s)/Supervisor [employer] (s) Surgeon VINCENT HILARIO DO Supervisor [employer]: none Pre-Operative Diagnosis Gastritis, Change in bowel habits, family hx of colon polyps Post-Operative Diagnosis Gastritis Esophagitis Gastric Polyp Diverticula internal hemorrhoids Procedure & Operative Findings Date of Procedure 04/23/20 Procedure Performed/Findings EGD with bx EGD with Polypectomy by hot bx Colonoscopy Anesthesia Type IV sedation by GLASS BEAD MAKER Estimated Blood Loss Estimated blood loss (mL): scant Specimens/Packing Specimens Removed antral bx body of stomach bx GE jxn bx Gastric polyp VICNENT HILARIO DO Apr 23, 2020 11:16
--- NOTE | 2020-04-23 11:17 | Endoscopy Discharge Instruct ---
Endo Procedure/Findings Findings 1.: Gastritis, Other Findings (Esophagitis) 2.: Polyp (Gastric) 3.: Diverticulosis 4.: Internal Hemorrhoids Discharge Instructions - Activity: You might feel a little sleepy until tomorrow. This is due to the medicine you received to relax you. Until tomorrow, you should: NOT drive a car, operate machinery or power tools. NOT drink any alcoholic beverages. NOT make any important decisions or sign importortant papers. Do not return to work until tomorrow, unless otherwise instructed. Resume previous activities tomorrow. Diet: Start by taking liquids. If you tolerate liquids, advance to solid food. 1.: Colonscopy in 10 years 2.: EGD in 3 years Notify Physician - If you experience excessive bleeding, unusual abdominal pain, fever, or chest pain, contact your doctor immediately. VINCENT HILARIO DO Apr 23, 2020 11:17
--- NOTE | 2020-04-23 12:23 | Anesthesia-General Post-Op ---
MAC Patient Condition Mental Status/LOC: Same as Preop Cardiovascular: Satisfactory Nausea/Vomiting: Absent Respiratory: Satisfactory Pain: Controlled Complications: Absent Post Op Complications Complications None Follow Up Care/Instructions Patient Instructions None needed. Anesthesiology Discharge Order Discharge Order Patient is doing well, no complaints, stable vital signs, no apparent adverse anesthesia problems. No complications reported per nursing. GREGG LAWSON CRNA Apr 23, 2020 12:23
--- NOTE | 2020-04-23 21:53 | OPERATIVE REPORT ---
DATE OF SERVICE: PREOPERATIVE DIAGNOSES: Gastritis, change in bowel habits and family history of colon cancer as well as early colon polyps in mother. POSTOPERATIVE DIAGNOSES: Gastritis, esophagitis, gastric polyp, diverticula and internal hemorrhoids. PROCEDURES: 1. EGD with biopsy. 2. EGD with polypectomy by hot biopsy. 3. Colonoscopy. SURGEON: Gelacio Dalton DO MECHANICAL ASSEMBLY: None. ANESTHESIA: IV sedation by the SUPERVISOR [employer]AL FURNITURE ASSEMBLY. SPECIMEN: Biopsy from the antrum, biopsy of body of stomach and biopsy from GE junction as well as a gastric polyp. BLOOD LOSS: Scant. FLUIDS: Per anesthesia. POSTOPERATIVE CONDITION: Stable. INDICATION FOR PROCEDURE: The patient is a 42-year-old female who has been having some gastritis that she had a change in bowel habits as well, family history of colon cancer and early colon polyps, needed a workup. FINDINGS: The patient had some gastritis, esophagitis and then saw a polyp in the stomach, colon just noted some diverticula and internal hemorrhoids. PROCEDURE NOTE: After informed consent was obtained, the patient was brought to the endoscopy suite, placed in bed in left lateral decubitus position. She was administered IV sedation by the SUPERVISOR [employer]AL FURNITURE ASSEMBLY who then monitored her vitals the entire time, heart rate, blood pressure and pulse ox, started with the EGD, placing scope down the mouth through the esophagus into the stomach, noted some changes in the esophagus on the way down, took a picture and then pushed in through to the duodenum, took a picture, noted gastritis, took a biopsy of the antrum and then saw a gastric polyp. Switched to a hot biopsy, able to grasp this polyp and in one bite removed the entire polyp with hot biopsy and then did a biopsy of the body of stomach and then pulled the scope into the GE junction and did 2 biopsies. Pushed the scope back into the stomach, suctioned all the air out and then pulled the scope up the esophagus and out the mouth. Switched camera, switched gloves, went down below, started the colonoscopy, pushed in all the way to about 150 cm, able to get to the cecum, took a picture of appendiceal orifice, noted the ileocecal valve and then slowly withdrew the scope insufflating the circumferential gavin looking the cecum, up the ascending colon to the hepatic flexure, down the transverse colon, splenic flexure, into the descending colon and sigmoid. Throughout the sigmoid and descending colon, saw some diverticula and even saw some diverticula on the ascending colon. In the rectum, retroflexed in rectal vault, saw some internal hemorrhoids, took a picture of these and then removed the scope. The patient tolerated the procedure. She was recovered in endoscopy suite. Job ID: [id number] DocumentID: [id number] Dictated Date: 04/23/2020 15:07:10 Data Warehouse Administrator Date: 04/23/2020 21:52:21 Dictated By: DO JAYY CONTRERAS
== END 2020-04-23 12:23 | disposition home or self-care (01) ==
LOC: ENDO 09:23
PROVIDERS: ATTEND Surgery
DX: K64.8 Other hemorrhoids (principal); K29.50 Unspecified chronic gastritis without bleeding; K21.00 Gastro-esophageal reflux disease with esophagitis, without bleeding; K31.7 Polyp of stomach and duodenum; K57.30 Diverticulosis of large intestine without perforation or abscess without bleeding; I10 Essential (primary) hypertension; E03.9 Hypothyroidism, unspecified; Z79.899 Other long term (current) drug therapy; Z80.0 Family history of malignant neoplasm of digestive organs; Z83.71 Family history of colonic polyps